=== PATIENT | male | born 1985 | race Hispanic/Latino ===

== ENCOUNTER 2021-04-10 06:50 | Emergency (ER) | payer BC, OTHER ==
[~2021-04-10] VITALS: Ht 175.3 cm; Wt 74.8 kg
[2021-04-10] MEDS ORDERED: ONDANSETRON 4MG INJ ONE (07:45)
[2021-04-10] MEDS ORDERED: MORPHINE 4 MG SYG ONE (07:45)
[2021-04-10 07:57] LABS: BASOPHILS % (AUTO) 0.3 % (0.0-5.0); EOSINOPHILS % (AUTO) 0.4 % (0.0-8.0); HEMATOCRIT 42.6 % (42-54); LYMPHOCYTES % (AUTO) 4.8 % (21.0-51.0); MEAN CORPUSCULAR HEMOGLOBIN 28.6 pg (27.0-33.0); MEAN CORPUSCULAR HGB CONC 34.7 g/dL (32.0-36.0); MEAN CORPUSCULAR VOLUME 82.4 fL (79-99); MONOCYTES % (AUTO) 4.7 % (3.0-13.0); NEUTROPHILS % (AUTO) 89.3 % (40.0-77.0); PLATELET COUNT (AUTO) 226 K/uL (130-400); RED BLOOD CELL COUNT(AUTO) 5.17 MIL/uL (4.50-6.20); RED CELL DISTRIBUTION WIDTH 11.9 % (11.0-15.5); WHITE BLOOD COUNT (AUTO) 16.1 K/uL (4.8-10.8)
[2021-04-10] MEDS ORDERED: MORPHINE 4 MG SYG IV SCH ×2 (08:00→10:00)
[2021-04-10] MEDS ORDERED: ONDANSETRON 4MG INJ IVP SCH (08:00)
[2021-04-10 08:11] LABS: CREATININE 0.9 mg/dL (0.5-1.5); POTASSIUM 3.5 mmol/L (3.5-5.1)
[2021-04-10] MEDS ORDERED: 0.9%NACL 1000ML 1,000 ML IV SCH (08:30)
[2021-04-10] MEDS ORDERED: IOHEXOL-350 75 ML VIAL IV ONE (08:49)
[2021-04-10] MEDS ORDERED: KETOROLAC 30MG VIAL (30MG/ML) IV SCH (10:00)
[2021-04-10 10:06] LABS: APPEARANCE,URINE Clear (CLEAR); BILIRUBIN,URINE Negative (NEGATIVE); COLOR,URINE Yellow (YELLOW); GLUCOSE, URINE (UA) Negative (NEGATIVE); KETONES,URINE 15 mg/dL (NEGATIVE); LEUKOCYTE ESTERASE ,URINE Negative (NEGATIVE); NITRATE,URINE Negative (NEGATIVE); OCCULT BLOOD,URINE Negative (NEGATIVE); PROTEIN,URINE Negative (NEGATIVE); UROBILINOGEN,URINE 0.2 mg/dL (0.2-1.0)
[2021-04-10 10:14] LABS: BACTERIA,URINE Rare /HPF (None Seen); RBC,URINE 0-1 /HPF (0-1); SQUAMOUS EPITHELIAL CELL,UR Rare /HPF (0-2); WBC,URINE 0-1 /HPF (0-1)
[2021-04-10] MEDS ORDERED: DOXY-336 PO (10:45)
[2021-04-10] MEDS ORDERED: ACET1TAB25 PO (10:45)
[2021-04-10 11:23] VITALS: BP 123/82
== END 2021-04-10 11:00 | disposition home or self-care (01) ==
LOC: EDH 06:50
DX: N43.3 Hydrocele, unspecified (principal); N50.82 Scrotal pain; Z79.1 Long term (current) use of non-steroidal anti-inflammatories (NSAID)
CPT/HCPCS: 36415; 72193; 76870; 80048; 81001; 85025; 96361; 96374; 96375; 96376; 99285; J1885; J2270 ×2; J2405; J7030; Q9967